=== PATIENT | female | born 1990 | race African-American/Black ===

== ENCOUNTER 2016-10-08 20:49 | Emergency (ER) | payer BC, OTHER ==
[~2016-10-08] VITALS: Ht 157.5 cm; Wt 61.4 kg
[2016-10-08] MEDS ORDERED: ONDANSETRON 4 MG INJ IV STA (20:52)
[2016-10-08] MEDS ORDERED: SOD CHLORIDE 0.9% 1,000 ML IV STA (20:52)
[2016-10-08] MEDS ORDERED: HYDROmorphONE 1 MG/ML SYG IV STA (20:52)
[2016-10-08 20:55] VITALS: Ht 157.5 cm; Wt 61.4 kg
--- NOTE | 2016-10-08 21:04 | ERA ---
ER Documentation Chief Complaint Date/Time DATE: 10/08/16 TIME: 20:59 Chief Complaint left flank pain HPI 25-year-old female who presents to the emergency room complaining of left flank pain. The patient describes a history of pyelonephritis. She describes 3 days of symptoms of left flank pain that is worse today. She now describes it as colicky and slightly radiating to the left lower abdomen. She denies any dysuria urgency or frequency. No fevers or chills. She does however state this feels somewhat similar to pyelonephritis in the past. The patient is tearful and hyperventilating. ROS All systems reviewed and are negative except as per history of present illness. Medications Home Meds Active Scripts Tramadol HCl (Tramadol HCl) 50 Mg Tablet, 50 MG PO Q6 Y for PAIN, #12 TAB Prov:TERI RODRIGUEZ MD 10/08/16 Allergies Allergies: Coded Allergies: ibuprofen (Verified Allergy, Unknown, 10/08/16) FmHx Family History: No diabetes Physical Exam Vitals Vital Signs Date Time Temp Pulse Resp B/P Pulse Ox O2 Delivery O2 Flow Rate FiO2 10/08/16 20:55 98.6 118 18 144/96 99 Physical Exam General: Tearful, hyperventilating Head: Normocephalic, atraumatic. Eyes: Pupils equally reactive, EOM intact ENT: Moist mucous membranes Neck: Supple, no lymphadenopathy Respiratory: Lungs clear bilaterally, no distress Cardiovascular: RRR, no murmurs, rubs, or gallops Abdominal: Soft, non-tender, non-distended, no peritoneal signs, no tenderness to McBurney's point Back: Mild CVAT to Left : Deferred MSK: No edema, no unilateral swelling, 5/5 strength Neurologic: Alert and oriented, moving all extremities, normal speech, no focal weakness, no cerebellar signs Skin: No rash Psych: Normal mood Result Diagram: 10/08/16205510/08/162055 Results 24 hrs Laboratory Tests Test 10/08/16 20:56 White Blood Count 11.610^3/ul Red Blood Count 4.7510^6/ul Hemoglobin 13.8g/dl Hematocrit 42.1% Mean Corpuscular Volume 88.6fl Mean Corpuscular Hemoglobin 29.1pg Mean Corpuscular Hemoglobin Concent 32.8g/dl Red Cell Distribution Width 14.1% Platelet Count 37619^3/UL Mean Platelet Volume 9.4fl Neutrophils % 56.8% Lymphocytes % 33.9% Monocytes % 7.7% Eosinophils % 0.7% Basophils % 0.6% Nucleated Red Blood Cells % 0.0/100WBC Neutrophils # 6.610^3/ul Lymphocytes # 3.910^3/ul Monocytes # 0.910^3/ul Eosinophils # 0.110^3/ul Basophils # 0.110^3/ul Nucleated Red Blood Cells # 0.010^3/ul Urine Color LT. YELLOW Urine Clarity CLEAR Urine pH 6.0 Urine Specific [place] 1.010 Urine Ketones NEGATIVE Urine Nitrite NEGATIVE Urine Bilirubin NEGATIVE Urine Urobilinogen 0.2 E.U./dL Urine Leukocyte Esterase NEGATIVE Urine Hemoglobin NEGATIVE Urine Glucose NEGATIVE% Urine Total Protein NEGATIVE Sodium Level 140mmol/L Potassium Level 3.2mmol/L Chloride Level 101mmol/L Carbon Dioxide Level 26mmol/L Anion Gap 16 Blood Urea Nitrogen 6mg/dl Creatinine 0.66mg/dl Glucose Level 92mg/dl Calcium Level 9.2mg/dl Total Bilirubin 0.7mg/dl Direct Bilirubin 0.00mg/dl Indirect Bilirubin 0.7mg/dl Aspartate Amino Transf (AST/SGOT) 32IU/L Alanine Aminotransferase (ALT/SGPT) 22IU/L Alkaline Phosphatase 81IU/L Total Protein 7.5g/dl Albumin 4.2g/dl Globulin 3.30g/dl Albumin/Globulin Ratio 1.27 Lipase 62U/L Serum HCG, Qualitative NEGATIVE Current Medications Medications (Trade) Dose Ordered Sig/Hector Route PRN Reason Start Time Stop Time Status Last Admin Dose Admin Sodium Chloride (NS) 1,000 ml @ 1,000 mls/hr Q1H STAT IV 10/08/16 20:52 10/08/16 21:51 DC 10/08/16 21:14 Hydromorphone HCl (Dilaudid) 0.5 mg ONCE STAT IV 10/08/16 20:52 10/08/16 20:54 DC 10/08/16 21:14 Ondansetron HCl (Zofran Inj) 4 mg ONCE STAT IV 10/08/16 20:52 10/08/16 20:54 DC 10/08/16 21:14 Lorazepam (Ativan) 1 mg ONCE ONCE IV 10/08/16 22:30 10/08/16 22:31 DC 10/08/16 22:08 Procedures/MDM EKG, MONITORS, & DIAGNOSTIC IMAGING: CT abdomen and pelvis: Pending LAB INTERPRETATION: No acute process, negative ECG MEDICAL DECISION MAKING: The patient is extremely anxious which may be contributing to her presentation. It appears that there is significant social issues including recent homelessness, social issues with friends that may be contributing to her presentation. However the patient is describing significant left flank pain. Consider possible kidney stone versus pyelonephritis. No significant shortness of breath or pleuritic pain that would raise the concern for pulmonary embolism. No risk factors for this. The patient will benefit from CT imaging of the abdomen and pelvis given persistence and significance of pain. ER COURSE: The patient's pain is well controlled, patient did receive a dose of Ativan. Patient CT is pending at the time of signout. Again low concern for pulmonary embolism. Consider anxiety versus musculoskeletal pain versus stone. The patient is endorsed a Dr. Waller to follow-up on CT imaging. If negative the patient can be safely discharged home. I kept the patient and/or family informed of laboratory and diagnostic imaging results throughout the emergency room course. DISPOSITION PLAN: Pending CT imaging, anticipate discharge home We discussed follow up with the patient's primary care doctor within 24 to 48 hours as needed. We also discussed return to the emergency room for worsening symptoms or worsening condition. Outpatient referral: [None required] Discharge Medications: Tramadol Departure Diagnosis: Primary Impression: Left flank pain Additional Impression: Anxiety reaction Condition: Stable TERI RODRIGUEZ MD Oct 08, 2016 21:04
[2016-10-08 21:34] LABS: ADD SCAN DIFF NO
[2016-10-08 21:36] LABS: BASOPHIL # 0.1 10^3/ul (0.0-0.1); BASOPHILS % 0.6 % (0.0-2.0); EOSINOPHILS # 0.1 10^3/ul (0.0-0.5); EOSINOPHILS % 0.7 % (0.0-7.0); HEMATOCRIT 42.1 % (37.0-47.0); HEMOGLOBIN 13.8 g/dl (12.0-16.0); LYMPHOCYTES # 3.9 10^3/ul (0.8-2.9); LYMPHOCYTES % 33.9 % (15.0-51.0); MEAN CORPUSCULAR HEMOGLOBIN 29.1 pg (29.0-33.0); MEAN CORPUSCULAR HGB CONC 32.8 g/dl (32.0-37.0); MEAN CORPUSCULAR VOLUME 88.6 fl (82.0-101.0); MEAN PLATELET VOLUME 9.4 fl (7.4-10.4); MONOCYTE # 0.9 10^3/ul (0.3-0.9); MONOCYTES % 7.7 % (0.0-11.0); NEUTROPHIL # 6.6 10^3/ul (1.6-7.5); NEUTROPHILS % 56.8 % (39.0-77.0); PLATELET COUNT 423 10^3/UL (140-415); RED BLOOD COUNT 4.75 10^6/ul (4.20-5.40); RED CELL DISTRIBUTION WIDTH 14.1 % (11.5-14.5); WHITE BLOOD COUNT 11.6 10^3/ul (4.8-10.8)
[2016-10-08 21:38] LABS: ADD UMIC NO; URINE BILIRUBIN (Dip) NEGATIVE (NEGATIVE); URINE BLOOD (Dip) NEGATIVE (NEGATIVE); URINE COLOR LT. YELLOW (YELLOW); URINE GLUCOSE (Dip) NEGATIVE (NEGATIVE); URINE KETONES (Dip) NEGATIVE (NEGATIVE); URINE LEUKOCYTE ESTERASE (Dip) NEGATIVE (NEGATIVE); URINE NITRITE (Dip) NEGATIVE (NEGATIVE); URINE TOTAL PROTEIN (Dip) NEGATIVE (NEGATIVE); URINE UROBILINOGEN (Dip) 0.2 E.U./dL (0.1-1.0)
[2016-10-08 21:45] LABS: ALBUMIN 4.2 g/dl (3.3-4.9)
[2016-10-08 21:46] LABS: POTASSIUM 3.2 mmol/L (3.5-5.1)
[2016-10-08 21:48] LABS: ALBUMIN/GLOBULIN RATIO 1.27; BILIRUBIN,INDIRECT 0.7 mg/dl (0-1.1); BILIRUBIN,TOTAL 0.7 mg/dl (0.2-1.3); CREATININE 0.66 mg/dl (0.44-1.00); TOTAL PROTEIN 7.5 g/dl (6.1-8.1)
[2016-10-08 21:49] LABS: CALCIUM 9.2 mg/dl (8.4-10.2)
[2016-10-08] MEDS ORDERED: LORAZEPAM 2 MG INJ IV ONE (22:30)
[2016-10-08] MEDS ORDERED: TRAM50TA2 PO (22:51)
--- NOTE | 2016-10-08 23:27 | RADRPT ---
PROCEDURE: CT Abdomen and pelvis without contrast. CLINICAL INDICATION: Abdominal pain. TECHNIQUE: CT scan of the abdomen and pelvis was performed on a multi-detector high-resolution CT scanner. Contiguous axial images were obtained from the lung bases to the ischial tuberosities wit hout intravenous contrast. Coronal and sagittal reformatted images were also obtained. Images were reviewed on the PACS workstation. One or more of the following dose reduction techniques were used: - Automated exposure control. - Adjustment of the mA and/or kV according to patient size. - Use of iterative reconstruction technique. Exam CTD/vol = 5.62 mGy. Total exam DLP = 303.68 mGy-cm. COMPARISON: None. FINDINGS: Evaluation of the lung bases demonstrates no pleural or parenchymal disease. Abdomen: The liver is normal in size. There is no focal mass or dilatation of the biliary tree. T he gallbladder is not distended. The spleen, pancreas and bilateral adrenal glands are within hollis l limits. Bilateral kidneys are normal in size with no contour deforming mass identified. There is no radiopaque renal or ureteral calculus identified. There is no hydronephrosis or hydroureter. T here is no retroperitoneal adenopathy. The abdominal aorta is of normal caliber. There is no abnormal bowel wall thickening or distension. There is no bowel obstruction or free air . A normal appendix is identified. There is no diverticulosis or diverticulitis. There is no asci nery. Pelvis: The bladder is unremarkable. The uterus and adnexa are within normal limits. There is no significant pelvic adenopathy or free fluid. Evaluation of the osseous structures demonstrates no suspicious lytic or blastic lesion. IMPRESSION: No acute abnormality identified within the abdomen and pelvis. .Joe Turcios MD, MD Date Time Electronically viewed and signed by .Joe Turcios MD, MD on 10/08/2016 23:27 .T/
[2016-10-08] MEDS ORDERED: morphine 4 MG/ML VIAL IV STA (23:57)
[2016-10-09 00:17] VITALS: BP 118/96; PULSE 74; RESP 18; TEMP 98.7
== END 2016-10-09 00:19 | disposition home or self-care (01) ==
LOC: E/R 20:49
DX: R10.9 Unspecified abdominal pain (principal); F41.1 Generalized anxiety disorder
CPT/HCPCS: 74176; 80053; 81003; 83690; 84703; 85025; 87086; J1170; J2060; J2270; J2405; J7030; 36415; 96374; 96375

== ENCOUNTER 2016-10-11 23:44 | Emergency (ER) | payer BC ==
[~2016-10-11] VITALS: Ht 160 cm; Wt 65.0 kg
[~2016-10-11 23:44] MED LIST: TRAM50TA2 PO
[2016-10-11 23:52] VITALS: Ht 160 cm; Wt 65.0 kg
[2016-10-12] MEDS ORDERED: HALOPERIDOL 5 MG INJ IM ONE (01:30)
[2016-10-12] MEDS ORDERED: LORAZEPAM 2 MG INJ IM ONE (01:30)
[2016-10-12] MEDS ORDERED: SOD CHLORIDE 0.9% 1,000 ML IV STA (01:49)
[2016-10-12] MEDS ORDERED: DIPHENHYDRAMINE 50 MG INJ IV ONE (02:00)
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
[2016-10-12 02:08] LABS: ADD UMIC NO; URINE BILIRUBIN (Dip) NEGATIVE (NEGATIVE); URINE BLOOD (Dip) NEGATIVE (NEGATIVE); URINE COLOR YELLOW (YELLOW); URINE GLUCOSE (Dip) NEGATIVE (NEGATIVE); URINE KETONES (Dip) TRACE (NEGATIVE); URINE LEUKOCYTE ESTERASE (Dip) NEGATIVE (NEGATIVE); URINE NITRITE (Dip) NEGATIVE (NEGATIVE); URINE TOTAL PROTEIN (Dip) NEGATIVE (NEGATIVE); URINE UROBILINOGEN (Dip) 0.2 E.U./dL (0.1-1.0)
[2016-10-12 02:27] LABS: BARBITURATES Negative (NEGATIVE); BENZODIAZEPINES Negative (NEGATIVE)
[2016-10-12 02:30] LABS: CANNABINOIDS Positive (NEGATIVE); COCAINE Negative (NEGATIVE); OPIATES Negative (NEGATIVE)
[2016-10-12 02:32] LABS: ADD SCAN DIFF NO
[2016-10-12 02:52] LABS: ALBUMIN 4.1 g/dl (3.3-4.9)
[2016-10-12 02:53] LABS: POTASSIUM 3.1 mmol/L (3.5-5.1)
[2016-10-12 02:54] LABS: CREATININE 0.62 mg/dl (0.44-1.00)
[2016-10-12 02:55] LABS: BASOPHIL # 0.1 10^3/ul (0.0-0.1); BASOPHILS % 0.6 % (0.0-2.0); HEMATOCRIT 38.9 % (37.0-47.0); LYMPHOCYTES # 0.9 10^3/ul (0.8-2.9); LYMPHOCYTES % 9.9 % (15.0-51.0); MEAN CORPUSCULAR HEMOGLOBIN 29.5 pg (29.0-33.0); MEAN CORPUSCULAR HGB CONC 33.4 g/dl (32.0-37.0); MEAN CORPUSCULAR VOLUME 88.4 fl (82.0-101.0); MONOCYTE # 0.5 10^3/ul (0.3-0.9); MONOCYTES % 5.8 % (0.0-11.0); NEUTROPHIL # 7.6 10^3/ul (1.6-7.5); NEUTROPHILS % 83.5 % (39.0-77.0); PLATELET COUNT 352 10^3/UL (140-415); RED CELL DISTRIBUTION WIDTH 14.4 % (11.5-14.5); WHITE BLOOD COUNT 9.1 10^3/ul (4.8-10.8)
[2016-10-12 02:55] LABS: ALBUMIN/GLOBULIN RATIO 1.32; BILIRUBIN,INDIRECT 0.1 mg/dl (0-1.1); BILIRUBIN,TOTAL 0.1 mg/dl (0.2-1.3); CALCIUM 8.8 mg/dl (8.4-10.2); TOTAL PROTEIN 7.2 g/dl (6.1-8.1)
[2016-10-12 02:56] LABS: ACETAMINOPHEN < 10.0 ug/ml (10.0-30.0); SALICYLATE < 1.0 mg/dl (5.0-30.0)
[2016-10-12] MEDS ORDERED: KETOROLAC 30 MG INJ IV STA (05:46)
[2016-10-12] MEDS ORDERED: ESCI10TA PO (08:54)
[2016-10-12] MEDS ORDERED: morphine 2 MG INJ IV ONE (09:00)
--- NOTE | 2016-10-12 09:01 | PSY ---
Date/Time of Note Date/Time of Note DATE: 10/12/16 TIME: 09:00 Psychiatric Subjective Eval Consent Pt consented to telemedicine: Yes Subjective Evaluation Patient location: emergency Chief Complaint: anxiety and left flank pain Medical history Problems Medical Problems: (1) Abdominal pain Status: Acute (2) Anxiety reaction Status: Acute (3) Behavioral problems Status: Acute (4) Flank pain Status: Acute (5) Left flank pain Status: Acute Allergies: Coded Allergies: ibuprofen (Verified Allergy, Unknown, 10/08/16) Psychiatric Objective Eval Mental Status Examination: Laboratory Results Laboratory Tests Test 10/12/16 01:10 10/12/16 02:00 10/12/16 02:45 Urine Color YELLOW Urine Clarity CLEAR Urine pH 7.5 Urine Specific [place] 1.015 Urine Ketones TRACE Urine Nitrite NEGATIVE Urine Bilirubin NEGATIVE Urine Urobilinogen 0.2 E.U./dL Urine Leukocyte Esterase NEGATIVE Urine Hemoglobin NEGATIVE Urine Glucose NEGATIVE% Urine Total Protein NEGATIVE Urine Opiates Screen Negative Urine Barbiturates Negative Urine Amphetamines Screen Negative Urine Benzodiazepines Screen Negative Urine Cocaine Screen Negative Urine Cannabinoids Positive Sodium Level 141mmol/L Potassium Level 3.1mmol/L Chloride Level 103mmol/L Carbon Dioxide Level 27mmol/L Anion Gap 14 Blood Urea Nitrogen 6mg/dl Creatinine 0.62mg/dl Glucose Level 106mg/dl Calcium Level 8.8mg/dl Total Bilirubin 0.1mg/dl Direct Bilirubin 0.00mg/dl Indirect Bilirubin 0.1mg/dl Aspartate Amino Transf (AST/SGOT) 36IU/L Alanine Aminotransferase (ALT/SGPT) 27IU/L Alkaline Phosphatase 68IU/L Total Protein 7.2g/dl Albumin 4.1g/dl Globulin 3.10g/dl Albumin/Globulin Ratio 1.32 Lipase 54U/L Serum HCG, Qualitative NEGATIVE Salicylates Level < 1.0mg/dl Acetaminophen Level < 10.0ug/ml Ethyl Alcohol Level 69.0mg/dl White Blood Count 9.110^3/ul Red Blood Count 4.4010^6/ul Hemoglobin 13.0g/dl Hematocrit 38.9% Mean Corpuscular Volume 88.4fl Mean Corpuscular Hemoglobin 29.5pg Mean Corpuscular Hemoglobin Concent 33.4g/dl Red Cell Distribution Width 14.4% Platelet Count 28106^3/UL Mean Platelet Volume 9.0fl Neutrophils % 83.5% Lymphocytes % 9.9% Monocytes % 5.8% Eosinophils % 0.0% Basophils % 0.6% Nucleated Red Blood Cells % 0.0/100WBC Neutrophils # 7.610^3/ul Lymphocytes # 0.910^3/ul Monocytes # 0.510^3/ul Eosinophils # 0.010^3/ul Basophils # 0.110^3/ul Nucleated Red Blood Cells # 0.010^3/ul Assessment Additional comments: IDENTIFYING INFORMATION: 26 year old -Emirati Female patient who is currently at the hospital and for whom psychiatric consultation was requested. SOURCES OF INFORMATION: The patient who appears to be reliable and the medical records; the nursing staff. Cassius, mom, who appears to be reliable CHIEF COMPLAINT: "I was in a lot of pain". HISTORY OF PRESENT ILLNESS: The patient was interviewed via telemedicine in the presence of and under the supervision of nursing staff of the hospital. The consent to conducting this interview via telemedicine was obtained by the nursing staff at the hospital. DEVIN Diop reports that the patient with h/o anxiety presented last night with back and flank pain, was physically aggressive, yelling and screaming. Patient was placed on restraints and given Haldol 5 mg IM and Ativan 2 mg IM. Pt was then able to calm down. According to the emergency room physician's note, the patient presented with bizarre behavior, as well as left-sided abdominal pain. The patient was reportedly screaming and hitting the [place]. Her mother reported that the patient acts like this whenever she is in pain. The patient reports that she came in with a lot of pain and no one would help her. She then got an anxiety attack and became upset with the staff. Admits to intermittent depression. Reports that she infrequently gets an anxiety attack sallie when in pain. Reports that she gets an anxiety attack sometimes appr once per week. She reports getting intense anxiety, tremor, tachycardia, dyspnea, chest pressure whenever she get an anxiety attack. She reports that there is no specific precipitant factor for the anxiety attacks, and that they just happen out of the blue. Denies having a fear of dying or getting a heart attack or going crazy or having agoraphobia. Denies having SI, HI, AH, VH, delusions, anhedonia, insomnia, low appetite. Mom reports that the patient was her normal self until yesterday when the pain began. Mom denies the patient having been persistently depressed, having any bizarre behavior, auditory or visual hallucinations, paranoia, suicidal ideation , homicidal ideation. Mom reports the patient does not suffer from any other psychiatric disorder other than anxiety. She reports that once in the past when she was in a lot of pain she had a similar reaction but of greater intensity, to the point where she had to call police, and the patient was briefly placed on a 5150. The patient was seen by a psychiatrist who felt that she does not require inpatient admission to psychiatry but rather the regular hospital. The patient reports drinking some alcohol last night; usually drinks 2-3 drinks per occasion. Last drink was last night. The patient denies having a history of serious alcohol withdrawal, with symptoms including tremors, seizures, delirium tremens, visual hallucinations, and denies having alcohol withdrawal related hospitalizations. The patient denies using alcohol heavily or regularly. The patient reports using MJ via INH twice daily. Last use was yesterday. The patient denies using any other substances. In terms of past psychiatric history, the patient reports having a history of no past psychiatric hospitalizations. Mom reports that 2 years ago she had an episode of agitation in the context of extreme pain and anxiety. She was diagnosed with an anxiety disorder and was told that she has a panic attack. The patient reports having a history of no past suicide attempts. The patient denies ever having a history of AH, delusions, persistent or serious depression or anhedonia, manic or hypomanic episodes. PAST MEDICAL HISTORY: asthma. CURRENT MEDICATIONS: albuterol PRN, OCP. ALLERGIES TO MEDICATIONS: ibuprofen. LABORATORY TESTS: CBC with white blood cells of 9.1, CMP with potassium of 3.1, test negative, UDS positive for cannabinoids, alcohol was 69 at every morning. FAMILY HISTORY: Noncontributory for bipolar disorder, schizophrenia, completed suicides. Depression/PTSD: mom. SOCIAL HISTORY: [employer] in [place], [place], lives with mom, single, no children; employed at a clothing store; no firearms at home. REVIEW OF SYSTEMS: Constitutional (e.g., fever, weight loss): negative; Eyes, Ears, Nose, Mouth, Throat: negative; Cardiovascular: negative; Respiratory: negative; Gastrointestinal: negative; Genitourinary: negative; Musculoskeletal: right side flank pain; Integumentary (skin and/or breast): negative; Neurological: negative; Psychiatric: as per HPI; Endocrine: negative; Hematologic/Lymphatic: negative; Allergic/Immunologic: negative. MENTAL STATUS EXAMINATION: General Appearance and Behavior: Calm, cooperative with the interview, pleasant with the current interviewer, makes good eye contact, well-groomed, no abnormal movements noted. Speech: Regular rate, regular rhythm, normal latency, normal volume, normal amount. Flow of thought: sequential, logical, goal-directed. Content of thought: no auditory hallucinations, no visual hallucinations, no delusions, no suicidal ideation; the patient is future-oriented, no homicidal ideation. Mood: "fine". Affect: euthymic, reactive, full range. Attention: normal based on the interview. Insight: good. Judgment: fair. Memory: normal based on the interview. Sensorium: alert and oriented to person, place and date, 10/12/2016, [employer] ASSESSMENT: The patient's presentation and history are consistent with the diagnosis of panic disorder, cannabis use disorder. The patient suffers from panic disorder. It appears that yesterday she had a panic attack in the context of acute pain and therefore became very frustrated. The patient also had some alcohol in her system as well as cannabinoids. There is no evidence of psychosis, arelis, hypomania, and the patient is not in a major depressive episode at this time. Reserve I: panic disorder, cannabis use disorder. Reserve II: Deferred. Reserve III: see PMH. Reserve IV: social stressors. Reserve V: GAF: 60. PLAN: - Medication management: Would start Lexapro 10 mg po qday for anxiety disorder. Risks, benefits, alternatives discussed in detail and the patient provided informed consent to proceed. - Labs: No other laboratory tests are needed at this time. - Psychotherapy: Provided supportive psychotherapy and psychoeducation. The patient was open to discontinuing the use of cannabis since she is going to start taking a medication for anxiety. The patient was counseled regarding the harmful effects of cannabis. - Disposition: The patient is appropriate for the outpatient level of care at this time from a psychiatric perspective. The patient is not an imminent danger to self or others. The patient is motivated for outpatient treatment. The patient agrees to be compliant with outpatient follow-up appointments and pharmacotherapy as indicated. Would recommend that the patient follows up with a psychiatrist. Resources for outpatient follow-up will be provided by the hospital staff. The patient's risk for completed suicide is moderate in comparison to the general population. Risk factors include age, substance use, anxiety disorder. Protective factors include race, gender, absence of schizophrenia, bipolar disorder, major depressive disorder, personality disorder, no access to firearms , no history of past suicide attempts, no major chronic medical problems, access to care ( the patient has health insurance), supportive family. The patient's risk for completed suicide cannot be modified more effectively with inpatient admission at this time. The patient is not an imminent danger to self or others at this time and does not meet the legal criteria for involuntary admission. Risks, benefits, alternatives were discussed and the patient provided informed consent to proceed with the above plan. Discussed about the above plan with Dr. King. NIRANJAN BERGERON MD Oct 12, 2016 09:01
[2016-10-12 09:19] VITALS: BP 118/70; PULSE 72; RESP 18; TEMP 97.9
== END 2016-10-12 09:17 | disposition home or self-care (01) ==
LOC: FTE 23:44 → E/R 10-12 09:17
DX: R46.1 Bizarre personal appearance (principal); R10.12 Left upper quadrant pain; Z87.891 Personal history of nicotine dependence
CPT/HCPCS: 36415; 80053; 80306; 80307; 81003; 83690; 84703; 85025; 96372; 96374; 96375; 99284; J1200; J1630; J1885; J2060; J2270; J7030

== ENCOUNTER 2016-10-16 18:51 | Emergency (ER) | payer BC ==
[~2016-10-16] VITALS: Ht 157.5 cm; Wt 59.0 kg
[~2016-10-16 18:51] MED LIST changes: +ESCI10TA PO
[2016-10-16 19:24] VITALS: Ht 157.5 cm; Wt 59.0 kg
[2016-10-16] MEDS ORDERED: KETOROLAC 30 MG INJ IM STA (20:18)
[2016-10-16] MEDS ORDERED: OXYC-279 PO (20:20)
[2016-10-16] MEDS ORDERED: DOCU-144 PO (20:20)
[2016-10-16] MEDS ORDERED: OXYCODONE/ACETAMINOPHEN (5/325) TAB PO ONE (20:30)
--- NOTE | 2016-10-16 22:09 | ERD ---
ER Documentation Chief Complaint Date/Time DATE: 10/16/16 TIME: 22:07 Chief Complaint abd pain luq radiating to flank, constipation x 2days on flagyl 3rd day HPI 26-year-old woman complaining of left upper quadrant and left flank pain 2-3 days associated with constipation. She states she was recently diagnosed with C. difficile colitis and has been using Flagyl as prescribed. She denies blood per rectum, mucus in her stools, or melena. She denies vomiting or diarrhea, no chest pain or shortness of breath. Patient denies dysuria. ROS All systems reviewed and are negative except as per history of present illness. Medications Home Meds Active Scripts Oxycodone HCl/Acetaminophen (Percocet 5-325 mg Tablet) 1 Each Tablet, 1 EACH PO BID for PAIN LEVEL 6-10, #9 TAB Prov:MARK DEWITT MD 10/16/16 Docusate Sodium* (Colace*) 100 Mg Capsule, 100 MG PO BID for CONSTIPATION, #30 CAP Prov:MARK DEWITT MD 10/16/16 Escitalopram Oxalate* (Lexapro*) 10 Mg Tablet, 10 MG PO DAILY, #30 TAB Prov:GLEN RENEE 10/12/16 Tramadol HCl (Tramadol HCl) 50 Mg Tablet, 50 MG PO Q6 Y for PAIN, #12 TAB Prov:TERI RODRIGUEZ MD 10/08/16 Allergies Allergies: Coded Allergies: ibuprofen (Verified Allergy, Unknown, 10/08/16) PMhx/Soc Depression, chronic pain History of Surgery: No Anesthesia Reaction: No Hx Neurological Disorder: No Hx Respiratory Disorders: No Hx Cardiac Disorders: No Hx Psychiatric Problems: No Hx Miscellaneous Medical Probl: Yes (ANXIETY, CDIF, ON CONTROL "DESOGEN") Hx Alcohol Use: No Hx Substance Use: No Hx Tobacco Use: Yes Smoking Status: Never smoker FmHx Family History: No diabetes Physical Exam Vitals Vital Signs Date Time Temp Pulse Resp B/P Pulse Ox O2 Delivery O2 Flow Rate FiO2 10/16/16 19:24 98.7 77 18 131/61 99 Physical Exam GENERAL: Well-developed, well-nourished, well-hydrated, in no apparent distress , looks nontoxic in appearance HEENT: Moist mucous membranes, pink conjunctiva, no cervical spine tenderness or step-off deformities, no goiter, no jaundice or icterus, extraocular movements intact without pain. No submandibular induration, and no pharyngeal erythema NEURO: Alert and oriented 3, cranial nerves II through XII intact bilaterally, pupils equal round reactive to light, no focal deficits or facial asymmetry, sensation intact distally Strength 5/5 in upper and lower extremities bilaterally CARDIAC: Regular rate and rhythm, no murmurs rubs or gallops LUNGS: Clear bilaterally no wheezing crackles or stridor ABDOMEN: Soft nontender, no guarding, no rigidity, no rebound, no psoas sign no obturator sign. Normoactive bowel sounds SKIN: Warm and dry to touch, no abrasions, contusions, or hematomas, no lacerations, no ecchymosis, no target lesions, and without ulcers EXTREMITIES: No clubbing cyanosis or edema, calves are bilaterally symmetrical, no Homans sign, no popliteal cord sign. Distal pulses equal and bilateral PSYCH: Normal affect without agitation or irritability Results 24 hrs Current Medications Medications (Trade) Dose Ordered Sig/Hector Route PRN Reason Start Time Stop Time Status Last Admin Dose Admin Ketorolac Tromethamine (Toradol) 30 mg ONCE STAT IM 10/16/16 20:18 10/16/16 20:19 DC 10/16/16 20:35 Oxycodone/ Acetaminophen (Percocet (5/ 325)) 1 tab ONCE ONCE PO 10/16/16 20:30 10/16/16 20:31 DC 10/16/16 20:35 Procedures/MDM I administered Toradol 30 mg intramuscular injection and Percocet 1 tablet p.o. for pain control. I reviewed her recent medical record and she has had similar episodes of flank pain in the past with a recent unremarkable CT abdomen pelvis. I will defer further imaging at this time and referred her back to her PMD, I recommend that she use her antibiotic as prescribed. Differential diagnoses considered, included but not limited to acute coronary syndrome, pulmonary embolism, aortic dissection, abdominal aortic aneurysm, sepsis, stroke, meningitis, encephalitis, pneumonia, appendicitis, cholecystitis , bowel obstruction, pyelonephritis, nephrolithiasis, cystitis, as well as metabolic, hematologic, and electrolyte abnormalities. As well as abscess, cellulitis, fractures, and dislocations. Patient feels much better at this time, and vital signs are normal, symptoms have improved. I did give strict instructions to return to the ED if symptoms continue or worsen, patient will otherwise follow-up with primary care physician. Patient understood instructions and agreed to plan. Departure Diagnosis: Primary Impression: Constipation Constipation type: unspecified constipation type Qualified Code: K59.00 - Constipation, unspecified constipation type Additional Impression: Flank pain Condition: Good Patient Instructions: Constipation (Adult), Flank Pain, Uncertain Cause MARK DEWITT MD Oct 16, 2016 22:09
== END 2016-10-16 20:44 | disposition home or self-care (01) ==
LOC: FTE 20:15
DX: K59.00 Constipation, unspecified (principal); Z87.891 Personal history of nicotine dependence
CPT/HCPCS: 96372; 99284; J1885; Z7610

== ENCOUNTER 2016-10-17 22:18 | Inpatient (IN) | payer BC ==
[~2016-10-17] VITALS: Ht 157.5 cm; Wt 60.3 kg
[~2016-10-17 22:18] MED LIST changes: +DOCU-144 PO; +OXYC-279 PO
[2016-10-18] MEDS ORDERED: ONDANSETRON 4 MG INJ IV STA (00:46)
[2016-10-18] MEDS ORDERED: morphine 4 MG/ML VIAL IV STA ×2 (00:46→03:14)
[2016-10-18] MEDS ORDERED: SOD CHLORIDE 0.9% 1,000 ML IV STA (00:46)
[2016-10-18] MEDS ORDERED: LORAZEPAM 2 MG INJ IV ONE ×2 (01:00→03:00)
[2016-10-18 01:08] LABS: ADD UMIC YES; URINE BILIRUBIN (Dip) NEGATIVE (NEGATIVE); URINE BLOOD (Dip) NEGATIVE (NEGATIVE); URINE COLOR YELLOW (YELLOW); URINE GLUCOSE (Dip) NEGATIVE (NEGATIVE); URINE KETONES (Dip) NEGATIVE (NEGATIVE); URINE LEUKOCYTE ESTERASE (Dip) NEGATIVE (NEGATIVE); URINE NITRITE (Dip) NEGATIVE (NEGATIVE); URINE TOTAL PROTEIN (Dip) TRACE (NEGATIVE); URINE UROBILINOGEN (Dip) 0.2 E.U./dL (0.1-1.0)
[2016-10-18 01:24] LABS: ADD SCAN DIFF NO
[2016-10-18 01:25] LABS: SQUAMOUS EPITHELIAL CELL,UR MANY; URINE RBCS 0-2 /HPF (0)
[2016-10-18 01:27] LABS: BASOPHIL # 0.1 10^3/ul (0.0-0.1); BASOPHILS % 0.5 % (0.0-2.0); EOSINOPHILS # 0.2 10^3/ul (0.0-0.5); EOSINOPHILS % 1.5 % (0.0-7.0); HEMATOCRIT 37.8 % (37.0-47.0); HEMOGLOBIN 12.5 g/dl (12.0-16.0); LYMPHOCYTES # 3.1 10^3/ul (0.8-2.9); LYMPHOCYTES % 30.8 % (15.0-51.0); MEAN CORPUSCULAR HEMOGLOBIN 29.6 pg (29.0-33.0); MEAN CORPUSCULAR HGB CONC 33.1 g/dl (32.0-37.0); MEAN CORPUSCULAR VOLUME 89.4 fl (82.0-101.0); MEAN PLATELET VOLUME 9.1 fl (7.4-10.4); MONOCYTES % 9.5 % (0.0-11.0); NEUTROPHIL # 5.8 10^3/ul (1.6-7.5); NEUTROPHILS % 57.5 % (39.0-77.0); PLATELET COUNT 407 10^3/UL (140-415); RED BLOOD COUNT 4.23 10^6/ul (4.20-5.40); RED CELL DISTRIBUTION WIDTH 14.5 % (11.5-14.5); WHITE BLOOD COUNT 10.1 10^3/ul (4.8-10.8)
[2016-10-18 01:56] LABS: ALBUMIN 3.6 g/dl (3.3-4.9)
[2016-10-18 01:59] LABS: ALBUMIN/GLOBULIN RATIO 1.16; CREATININE 0.61 mg/dl (0.44-1.00); TOTAL PROTEIN 6.7 g/dl (6.1-8.1)
[2016-10-18 02:00] LABS: CALCIUM 8.6 mg/dl (8.4-10.2)
[2016-10-18] MEDS ORDERED: HYDROmorphONE 1 MG/ML SYG IV STA (02:01)
--- NOTE | 2016-10-18 02:11 | RADRPT ---
PROCEDURE: CT Abdomen and Pelvis without contrast. CLINICAL INDICATION: Abdominal pain. TECHNIQUE: A CT scan of the abdomen and pelvis was performed without intravenous contrast. Hall l and sagittal reformatted images were generated. Images were reviewed on a high-resolution PACS wor kstation. CTDIvol: 7.07 mGy. DLP: 363.42 mGy-cm. One or more of the following dose reduction techniques were used: - Automated exposure control. - Adjustment of the mA and/or kV according to patient size. - Use of iterative reconstruction technique. COMPARISON: 10/08/2016 FINDINGS: The lung bases are clear. Evaluation of the abdominal and pelvic viscera is limited by the lack of oral and intravenous contra st. The liver is unremarkable. The gallbladder is normal in appearance. The common bile duct is not dila carri. The spleen is not enlarged. No pancreatic lesion is identified and there is no pancreatic ducta l dilatation. The adrenal glands are unremarkable. The kidneys are normal in size. There is no perinephric fat stranding. No hydronephrosis is seen. No urinary stone is identified. The small and large bowel are normal in caliber. There is no bowel wall thickening. The appendix is normal. The urinary bladder is unremarkable. The pelvic organs are within normal limits. There is a small vo lume free pelvic fluid. No lymphadenopathy is identified. No pneumoperitoneum is seen. There are no arterial calcifications. No suspicious osseous lesion is idenitified. IMPRESSION: 1. No inflammation, mass, or lymphadenopathy. 2. Normal appendix. 3. No obstructive uropathy or urinary stone. 4. Small volume free pelvic fluid, possibly physiologic. RPTAT: HTAR .Bennie Khan MD, Date Time Electronically viewed and signed by .Bennie Khan MD, on 10/18/2016 02:11 .R/
[2016-10-18 02:27] LABS: POTASSIUM 2.9 mmol/L (3.5-5.1)
--- NOTE | 2016-10-18 02:45 | ERA ---
ER Documentation Chief Complaint Date/Time DATE: 10/18/16 TIME: 02:44 Chief Complaint RT FLANK PAIN/ABDOMINAL PAIN WITH CONSTIPATION. DX UTI RECENTLY HPI This is a 26 year female recently diagnosed with UTI and complains of right flank pain abdominal pain. Pain started in lower abdomen is now rotated to her right flank. She said some fevers and chills alternating. Patient has been taking antibiotics. No improvement in symptomology. Positive dysuria. No other current complaints. ROS All systems reviewed and are negative except as per history of present illness. Medications Home Meds Active Scripts Oxycodone HCl/Acetaminophen (Percocet 5-325 mg Tablet) 1 Each Tablet, 1 EACH PO BID for PAIN LEVEL 6-10, #9 TAB Prov:MARK DEWITT MD 10/16/16 Docusate Sodium* (Colace*) 100 Mg Capsule, 100 MG PO BID for CONSTIPATION, #30 CAP Prov:MARK DEWITT MD 10/16/16 Escitalopram Oxalate* (Lexapro*) 10 Mg Tablet, 10 MG PO DAILY, #30 TAB Prov:GLEN RENEE 10/12/16 Tramadol HCl (Tramadol HCl) 50 Mg Tablet, 50 MG PO Q6 Y for PAIN, #12 TAB Prov:TERI RODRIGUEZ MD 10/08/16 Allergies Allergies: Coded Allergies: ibuprofen (Verified Allergy, Unknown, 10/08/16) PMhx/Soc History of Surgery: No Anesthesia Reaction: No Hx Neurological Disorder: No Hx Respiratory Disorders: No Hx Cardiac Disorders: No Hx Psychiatric Problems: No Hx Miscellaneous Medical Probl: Yes (ANXIETY, CDIF, ON CONTROL "DESOGEN") Hx Alcohol Use: No Hx Substance Use: No Hx Tobacco Use: Yes Smoking Status: Never smoker Physical Exam Vitals Vital Signs Date Time Temp Pulse Resp B/P Pulse Ox O2 Delivery O2 Flow Rate FiO2 10/17/16 22:27 98.3 90 18 131/82 99 Physical Exam Const: [] Head: Atraumatic Eyes: Normal Conjunctiva ENT: Normal External Ears, Nose and Mouth. Neck: Full range of motion..~ No meningismus. Resp: Clear to auscultation bilaterally Cardio: Regular rate and rhythm, no murmurs Abd: Soft, non tender, non distended. Normal bowel sounds Skin: No petechiae or rashes Back: No midline or flank tenderness Ext: No cyanosis, or edema Neur: Awake and alert Psych: Normal Mood and Affect Result Diagram: 10/18/16 0110 10/18/16 0110 Results 24 hrs Laboratory Tests Test 10/18/16 00:55 10/18/16 01:10 Urine Color YELLOW Urine Clarity CLEAR Urine pH 6.0 Urine Specific [place] 1.015 Urine Ketones NEGATIVE Urine Nitrite NEGATIVE Urine Bilirubin NEGATIVE Urine Urobilinogen 0.2 E.U./dL Urine Leukocyte Esterase NEGATIVE Urine Microscopic RBC 0-2/HPF Urine Microscopic WBC 2-5/HPF Urine Squamous Epithelial Cells MANY Urine Hemoglobin NEGATIVE Urine Glucose NEGATIVE% Urine Total Protein TRACE White Blood Count 10.110^3/ul Red Blood Count 4.2310^6/ul Hemoglobin 12.5g/dl Hematocrit 37.8% Mean Corpuscular Volume 89.4fl Mean Corpuscular Hemoglobin 29.6pg Mean Corpuscular Hemoglobin Concent 33.1g/dl Red Cell Distribution Width 14.5% Platelet Count 05763^3/UL Mean Platelet Volume 9.1fl Neutrophils % 57.5% Lymphocytes % 30.8% Monocytes % 9.5% Eosinophils % 1.5% Basophils % 0.5% Nucleated Red Blood Cells % 0.0/100WBC Neutrophils # 5.810^3/ul Lymphocytes # 3.110^3/ul Monocytes # 1.010^3/ul Eosinophils # 0.210^3/ul Basophils # 0.110^3/ul Nucleated Red Blood Cells # 0.010^3/ul Sodium Level 138mmol/L Potassium Level 2.9mmol/L Chloride Level 101mmol/L Carbon Dioxide Level 26mmol/L Anion Gap 14 Blood Urea Nitrogen 7mg/dl Creatinine 0.61mg/dl Glucose Level 94mg/dl Calcium Level 8.6mg/dl Total Bilirubin 0.0mg/dl Direct Bilirubin 0.00mg/dl Indirect Bilirubin 0.0mg/dl Aspartate Amino Transf (AST/SGOT) 29IU/L Alanine Aminotransferase (ALT/SGPT) 22IU/L Alkaline Phosphatase 56IU/L Total Protein 6.7g/dl Albumin 3.6g/dl Globulin 3.10g/dl Albumin/Globulin Ratio 1.16 Lipase 67U/L Current Medications Medications (Trade) Dose Ordered Sig/Hector Route PRN Reason Start Time Stop Time Status Last Admin Dose Admin Sodium Chloride (NS) 1,000 ml @ 1,000 mls/hr Q1H STAT IV 10/18/16 00:46 10/18/16 01:45 DC 10/18/16 00:58 Morphine Sulfate (morphine) 4 mg ONCE STAT IV 10/18/16 00:46 10/18/16 00:48 DC 10/18/16 00:58 Ondansetron HCl (Zofran Inj) 4 mg ONCE STAT IV 10/18/16 00:46 10/18/16 00:48 DC 10/18/16 00:58 Lorazepam (Ativan) 1 mg ONCE ONCE IV 10/18/16 01:00 10/18/16 01:01 DC 10/18/16 00:58 Hydromorphone HCl 1 mg 1 mg ONCE STAT IV 10/18/16 02:01 10/18/16 02:02 DC 10/18/16 02:05 Potassium Chloride (KCl 40 MEQ/250 ML NS) 250 ml @ 62.5 mls/hr ONCE ONCE IVPB 10/18/16 03:00 10/18/16 06:59 UNV Procedures/MDM Medical decision making: Clinically patient has evidence of a sending UTI versus early pyelonephritis. Given the failure of outpatient management. Patient will be admitted to hospitalist for Departure Diagnosis: Primary Impression: Flank pain Condition: Stable MERY YANG Oct 18, 2016 02:45
[2016-10-18] MEDS ORDERED: POTASSIUM CHLORIDE 250 ML IVPB ONE ×2 (03:00→10:00)
[2016-10-18] MEDS ORDERED: CEFTRIAXONE 1 GM/50 ML (PMX) 50 ML IVPB ONE (03:00)
[2016-10-18 03:40] VITALS: TEMP 97.7
[2016-10-18 04:13] VITALS: Ht 157.5 cm; Wt 60.3 kg
[2016-10-18] MEDS ORDERED: METR500T PO (04:15)
[2016-10-18] MEDS ORDERED: morphine 4 MG/ML VIAL IV PRN (04:30)
[2016-10-18 04:42] VITALS: BP 141/92; PULSE 70; RESP 18
[2016-10-18] MEDS ORDERED: HYDROmorphONE 2 MG/ML SYG IV ONE (04:57)
[2016-10-18] MEDS ORDERED: NACL 0.9% 3 ML SYG IV SCH (05:30)
[2016-10-18] MEDS ORDERED: OXYCODONE/ACETAMINOPHEN (5/325) TAB PO PRN (05:30)
[2016-10-18] MEDS ORDERED: METOCLOPRAMIDE 10 MG INJ IV PRN (05:30)
[2016-10-18] MEDS ORDERED: ACETAMINOPHEN 325 MG TAB PO PRN (05:30)
[2016-10-18] MEDS ORDERED: ONDANSETRON 4 MG TAB PO PRN (05:30)
[2016-10-18 07:06] LABS: POTASSIUM 3.4 mmol/L (3.5-5.1)
[2016-10-18 07:09] LABS: CREATININE 0.58 mg/dl (0.44-1.00)
[2016-10-18 07:10] LABS: CALCIUM 8.2 mg/dl (8.4-10.2); MAGNESIUM 1.9 mg/dl (1.7-2.5)
[2016-10-18 07:38] VITALS: BP 154/89; RESP 20
[2016-10-18] MEDS ORDERED: morphine 2 MG INJ IV PRN ×2 (08:59→10:30)
[2016-10-18] MEDS ORDERED: ESCITALOPRAM 10 MG TAB PO SCH (09:00)
[2016-10-18] MEDS ORDERED: FAMOTIDINE 20 MG TAB PO SCH (09:00)
[2016-10-18] MEDS ORDERED: metroNIDAZOLE 500 MG TAB PO SCH (09:00)
[2016-10-18] MEDS ORDERED: DOCUSATE SODIUM 100 MG CAP PO SCH (09:00)
[2016-10-18] MEDS ORDERED: CYCLOBENZAPRINE 10 MG TAB PO PRN (10:30)
--- NOTE | 2016-10-18 12:26 | PDOCDIS ---
Discharge Instructions CONDITION Patient Condition: Good HOME CARE INSTRUCTIONS: Diet Instructions: Regular ACTIVITY: Activity Restrictions: Slowly Increase Activity Rest between Activity Avoid heavy lifting Do not operate Power Tool Avoid Heavy Housework Bathing Restrictions: Shower FOLLOW UP/APPOINTMENTS Appointments Follow up with PCP in one week SEAMUS RÍOS MD Oct 18, 2016 12:26
--- NOTE | 2016-10-18 14:11 | DS ---
DATE OF ADMISSION: 10/18/2016 DATE OF DISCHARGE: 10/18/2016 CONSULTATIONS: None. DIAGNOSES: 1. Hypokalemia, repleted. 2. Abdominal pain, likely secondary to constipation versus musculoskeletal pain. Continue pain med ication. 3. History of Clostridium difficile. Continue Flagyl. 4. Major depression. Continue Lexapro. MEDICATIONS: 1. No change in patient's home medications. The patient will continue Colace. 2. Lexapro. 3. Flagyl. 4. Percocet. ALLERGIES: IBUPROFEN. DISPOSITION: Home. DIET: Regular diet. ACTIVITY: As tolerated. HOSPITAL COURSE: This is a 26-year-old female with past medical history of constipation, C. diff on Flagyl, major depression on Lexapro, who also has been taking Percocet for pain and presented to [facility] for the past 4 days complaining of having abdominal discomfort. To day, the patient presented for right-sided flank pain. The patient's urinalysis was found to be neg ative. The CT abdomen and pelvis did not show any evidence of obstructive uropathy or pyelonephriti s. No bowel obstruction. The patient is complaining of constipation. She was treated with IV flui d and pain medication such as morphine, Dilaudid, Rocephin, and lorazepam. The patient was found to be hypokalemic with potassium of 2.9 which was repleted, and recent potassium was 3.4 which was aga in repleted. The patient was admitted to med/surg where she denied having any abdominal pain, nause a, vomiting, diarrhea. She did have a bowel movement, as stated above. She was able to tolerate or al intake, and then she requested to be discharged home when she arrived to the med/surg floor after thorough examination. PHYSICAL EXAMINATION: GENERAL: The patient was found to be awake, alert, oriented. NECK: Supple. Trachea is midline. EYES AND END: Conjunctivae and lids are normal. Pupils are normal. Extraocular normal. Hearing g rossly normal. Oral mucosa is moist. CHEST: Normal expansion of thorax. CARDIOVASCULAR: Normal S1, S2. ABDOMEN: Soft, nontender, not distended. Bowel sounds present. No CVA tenderness. EXTREMITIES: Upper and lower extremities within normal limits. The patient was medically stable to be discharged home. LABORATORY DATA: Sodium 136, potassium 3.4, chloride 106, bicarbonate 27, BUN 6, creatinine 0.58, g lucose 102, calcium 8.2, magnesium 1.9. Urinalysis was found to be negative for leukocyte esterase, nitrite, glucose. PLAN: The patient requested to be discharged home while she was getting her IV potassium after 2 ho urs when she arrived to the med/surg floor. Her vitals have been stable. CONDITION AT TIME OF DISCHARGE: Stable. Dictated By: SEAMUS OH/NTS Conf#: [id number] DID#: [id number]
--- NOTE | 2016-10-18 14:19 | HP ---
DATE OF ADMISSION: 10/18/2016 HOUSEKEEPER HEAD: None. CHIEF COMPLAINT: Right-sided flank pain. HISTORY OF PRESENT ILLNESS: This is a 26-year-old female with past medical history of C diff, on Fl agyl, major depression, constipation, chronic pain syndrome who presents to [facility] secondary to having abdominal discomfort and constipation. The patient has been visiting the mergency room on October 08, October 11, October 16, and again October 18. Upon evaluation in the ER, the patient's urinalysis was found to be negative. WBC was normal. She was afebrile. She was ginger ated with Zofran, morphine, normal saline, Ativan, Dilaudid, Rocephin, potassium chloride and has be en admitted to med/surg for further evaluation. CT of the abdomen and pelvis was obtained which did not show any evidence of pyelonephritis. No inflammation, mass, or lymphadenopathy. Normal append ix, no obstructive uropathy or urinary stone. The patient was able to tolerate her oral intake and has been requested to be discharged home. PAST MEDICAL AND SURGICAL HISTORY: As above per HPI. MEDICATIONS: 1. Colace. 2. Lexapro. 3. Flagyl. 4. Percocet. ALLERGIES: IBUPROFEN. SOCIAL HISTORY: Daily smoker. Denies any illicit drug or alcohol. REVIEW OF SYSTEMS: She denies having any fever, chills, weight gain, weight loss, anorexia. No luana st pain, palpitations, edema, orthopnea. No change in visual acuity, diplopia, photophobia. Positi ve for right flank pain. Positive for constipation, although she did have a bowel movement in the c ourse of the emergency room. No hematochezia, no hematemesis. No change in the color of stool. No neck pain, restricted range of motion of upper and lower extremities or her neck. The other 12 rev iew of systems were found to be negative. PHYSICAL EXAMINATION: VITAL SIGNS: Temperature 97.5, pulse 76, respiration rate 20, blood pressure 154/89 and 114/81, oxy gen saturation 100% room air. GENERAL APPEARANCE: The patient is lying in bed comfortably without any distress. She is awake, al ert, oriented. She is able to answer my questions properly. EYES AND ENT: Conjunctivae and lids are normal. Pupils are normal. Extraocular movements are norm al. Hearing grossly normal. Lips, teeth and gums are normal. Oral mucosa is moist. NECK: Supple. Trachea is midline. No lymphadenopathy. RESPIRATORY: Effort is normal. Clear to auscultate bilaterally. CARDIOVASCULAR: Normal S1, S2. Regular rhythm and rate. No murmur, no bruits, no edema. Peripher al pulses, radial pulses palpable. Cap refill is normal. CHEST: Normal expansion of thorax during inspiration. GASTROINTESTINAL: Abdomen is soft, nontender, not distended. Bowel sounds present. No guarding, n o rebound. No CVA tenderness. GENITOURINARY: Deferred. MUSCULOSKELETAL: Upper and lower extremities within normal limits. NEUROLOGIC: She is awake, alert. LABORATORY WORK: WBC 10.1, hemoglobin 12.5, hematocrit 37.8, platelets 407. Sodium 138, potassium 2.9, chloride 101, bicarbonate 26, BUN 7, creatinine 0.61, glucose 94, calcium 8.6. LFTs all within normal limits. ASSESSMENT AND PLAN: 1. Abdominal discomfort, likely musculoskeletal pain. The patient will continue all her home medic ations. 2. Hypokalemia, repleted. 3. Major depression. Continue Lexapro. 4. History of Clostridium difficile. Continue Flagyl. The patient has been requesting to be discharged. Therefore, the patient was admitted and brought t o the floor. The discharge was done, and the patient has been discharged home in stable condition. Dictated By: SEAMUS OH/NTS Conf#: [id number] DID#: [id number]
== END 2016-10-18 13:05 | disposition home or self-care (01) | DRG 392 ==
LOC: FTE 22:18 → MS1 10-18 02:50
PROVIDERS: ADMIT Family Medicine; ATTEND Family Medicine
DX: K59.00 Constipation, unspecified (principal); F32.9 Major depressive disorder, single episode, unspecified; M79.1 Myalgia
CPT/HCPCS: 36415; 74176; 80048; 80053; 81001; 81003; 83690; 83735; 85025; 96374; 96375; 96376; J0696; J1170; J2060; J2270; J2405; J2765; J3480; J7030

== ENCOUNTER 2016-10-20 17:13 | Emergency (ER) | payer BC ==
[~2016-10-20] VITALS: Ht 157.5 cm; Wt 68.0 kg
[~2016-10-20 17:13] MED LIST changes: +METR500T PO
[2016-10-20 17:18] VITALS: Ht 157.5 cm; Wt 68.0 kg
--- NOTE | 2016-10-20 18:41 | ERD ---
ER Documentation Chief Complaint Date/Time DATE: 10/20/16 TIME: 18:27 Chief Complaint pt bib family with c/o abd pain/back pain and diarrhea HPI Patient is a 26-year-old female who presents with abdominal pain. This is the fifth time she has been to the emergency room within the last 2 weeks for this problem. She has already had multiple workups which were all normal including 2 CT scans which were all normal and was admitted 2 days ago for this and discharged the same day. She is faxed complaining that she continues to have lower abdominal pain and dark watery diarrhea. She is currently being treated with Flagyl for bacterial vaginosis. There is no fever. No nausea or vomiting. ROS All systems reviewed and are negative except as per history of present illness. Medications Home Meds Active Scripts Oxycodone HCl/Acetaminophen (Percocet 5-325 mg Tablet) 1 Each Tablet, 1 EACH PO BID for PAIN LEVEL 6-10, #9 TAB Prov:MARK DEWITT MD 10/16/16 Docusate Sodium* (Colace*) 100 Mg Capsule, 100 MG PO BID for CONSTIPATION, #30 CAP Prov:MARK DEWITT MD 10/16/16 Escitalopram Oxalate* (Lexapro*) 10 Mg Tablet, 10 MG PO DAILY, #30 TAB Prov:GLEN RENEE 10/12/16 Reported Medications Metronidazole* (Flagyl*) 500 Mg Tablet, 500 MG PO BID for 7 Days, TAB 10/18/16 Discontinued Scripts Tramadol HCl (Tramadol HCl) 50 Mg Tablet, 50 MG PO Q6 Y for PAIN, #12 TAB Prov:TERI RODRIGUEZ MD 10/08/16 Allergies Allergies: Coded Allergies: ibuprofen (Verified Allergy, Unknown, 10/08/16) PMhx/Soc History of Surgery: Yes (tonsillectomy,) Anesthesia Reaction: No Hx Neurological Disorder: No Hx Respiratory Disorders: Yes (asthma) Hx Cardiac Disorders: No Hx Psychiatric Problems: Yes (anxiety) Hx Miscellaneous Medical Probl: Yes (hx of cdi2011) Hx Alcohol Use: No Hx Substance Use: No Hx Tobacco Use: Yes (trying to quit.) Smoking Status: Current every day smoker FmHx Family History: No diabetes Physical Exam Vitals Vital Signs Date Time Temp Pulse Resp B/P Pulse Ox O2 Delivery O2 Flow Rate FiO2 10/20/16 17:18 98.3 97 24 128/90 100 Physical Exam General: well developed, well nourished, alert, nontoxic, anxious Head: normocephalic, atraumatic Neck: Supple, nontender, no lymphadenopathy, no midline tenderness Respiratory: Clear to auscaultation bilaterally, speaks in full sentences, no use of accesory muscles or labored breathing, no rales, ronchi, or wheezing Cardiovascular: RRR, No murmurs GI: soft, non tender, non distended, negative murphys sign, negative mcburneys point tenderness, no cva tenderness bilaterally, no rebound or guarding Back: no midline tenderness, no step offs or bony abnormalities, sensation to light touch in tact Extremities: moving all extremities normally, normal gait, no edema Procedures/MDM Patient is a 26-year-old female who presents complaining of abdominal pain. Her vital signs are stable, she is afebrile, she is not tachycardic, she is not hypertensive. She has been seen here multiple times and was admitted 2 days ago. She has had multiple workups including labs and 2 CT scans,most recently 2 days ago which was unremarkable. There was evidence of bacterial vaginosis on wet mount in which she is already taking Flagyl. I explained to her that she should continue to take the flagyl as prescribed and follow up with primary care doctor if the flagyl is not working to change the medication to a different medication or to discuss other options. I reviewed all of the patient 's v labs and imaging from each of her multiple visits with my supervising physician Dr. Dewitt, who has also seen her during one of her visits here. Pt became emotionally upset and tearful and yelling as i was explaining to her that we did not believe it was necessary to repeat imaging and labs, as we did not believe the risks outweigh the benefits or radiation and continual blood draws. Pt continued to be upset and therefore Dr. Dewitt also came and spoke to the patient and explained to her that she needs to follow-up with primary care doctor for further evaluation and treatment. Pt was discharged with a list of low cost clinics so she can follow up with primary care as well as a copy of her most recent CT scan from 2 days ago. All labs and visits were reviewed with Dr. Dewitt and he agrees with the plan. Departure Diagnosis: Primary Impression: Anxiety Additional Impressions: Chronic pain Bacterial vaginosis Condition: Stable Patient Instructions: Anxiety Reaction, Chronic Pain Referrals: [facility] YOU HAVE RECEIVED A MEDICAL SCREENING EXAM AND THE RESULTS INDICATE THAT YOU DO NOT HAVE A CONDITION THAT REQUIRES URGENT TREATMENT IN THE EMERGENCY DEPARTMENT. FURTHER EVALUATION AND TREATMENT OF YOUR CONDITION CAN WAIT UNTIL YOU ARE SEEN IN YOUR DOCTORS OFFICE WITHIN THE NEXT 1-2 DAYS. IT IS YOUR RESPONSIBILITY TO MAKE AN APPOINTMENT FOR FOLOW-UP CARE. IF YOU HAVE A PRIMARY DOCTOR --you should call your primary doctor and schedule an appointment IF YOU DO NOT HAVE A PRIMARY DOCTOR YOU CAN CALL OUR PHYSICIAN REFERRAL HOTLINE AT IF YOU CAN NOT AFFORD TO SEE A PHYSICIAN YOU CAN CHOSE FROM THE FOLLOWING [facility] [address] [facility] [address] [facility] [facility] [address] [facility] [address] [facility]. [facility] [address] [facility]. [facility] [address] Additional Instructions: Call your primary care doctor TOMORROW for an appointment during the next 1-2 days.See the doctor sooner or return here if your condition worsens before your appointment time. TIO CARPENTER PA-C Oct 20, 2016 18:39
== END 2016-10-20 18:30 | disposition home or self-care (01) ==
LOC: FTE 17:13
DX: F41.9 Anxiety disorder, unspecified (principal); N76.0 Acute vaginitis
CPT/HCPCS: 99282